=== PATIENT | male | born 1980 | race Caucasian/White ===

== ENCOUNTER 2016-11-06 16:30 | Emergency (ER) | payer SELFPAY ==
[2016-11-06 16:54] VITALS: BP 145/97; BMI 24.2
--- NOTE | 2016-11-06 17:24 | DR.GENAD ---
HPI - PCP Primary Care Physician: unkown - Complaint/Symptoms Chief Complaint Doctors Comments: Patient brought to the ED by [id number] because he posted a statement on "face book" about him not being able to by his son a gift on the birthday because he was unemployed see statement. He states that he is non suicidal and non homocidal. He was just upset because he felt less than a man because he could not provide for his son. He stated that" who would not feel that way" when you do not have any money and unemployed. Mental Health contacted but could not come to evaluate unless medically cleared. Patient would not given any blood samples and stated again that he did not want to heart anyone, and that he was not suicidal or homocidal. Patient would not give blood specimen and was not detained. Chief Complaint:: Pt refused to speak with us at this time. Pt brought in by law enforcement after posting on facebook "Any friends with me on [employer] chat tune in for the ending suicide of ya boi within the hour it will be posted." " well lets see where to begin its my son birthday and me his sorry ass excuse of a jobless dad has made it the worst bday a kid can have so fuck it im not suppose to be a dad or even alive so holla i hell when yall get there too" Self Treatment fo Chief Complaint: pt will not speak to me about a plan or anything else at this time. pt said he didnt want to harm himself at this time - Source History Provided: Patient, Law Enforcement - Mode of Arrival Mode of Arrival: Ambulatory - Timing Onset of Chief Complaint: 11/06/16 PMH - PMH Past Medical History: No Past Medical History: Anxiety, Depression Past Surgical History: No - Family History History of Family Medical Conditions: No - Social History Does patient currently use any type of tobacco product: Yes Have you used tobacco products in the last 12 months: Yes Type of Tobacco Use: Cigarettes How many years tobacco product used: 10 Does any household member use tobacco: No Alcohol Use: Occasionally Do you use any recreational Drugs:: Yes (pain pills) Lives With: Family Lives Where: Home - infectious screening In the last 2 months have you had wt loss of >10#?: NO Have you had fever, night sweats or hemotysis?: No Have you traveled outside the country in the last 6 months?: No Isolation: Standard ROS - Review of Systems Constitutional: No Symptoms Reported Eyes: No Symptoms Reported ENTM: No Symptoms Reported Respiratoy: No Symptoms Reported Cardiovascular: No Symptoms Reported Gastrointestinal/Abdominal: No Symptoms Reported Genitourinary: No Symptoms Reported Neurological: No Symptoms Reported Musculoskeletal: No Symptoms Reported Integumentary: No Symptoms Reported Hematologic/Lymphatic: No Symptoms Reported Endocrine: No Symptoms Reported Psychiatric: No Symptoms Reported All Other Systems: Reviewed and Negative PE - Vital Signs Vitals: Temperature 97.8 F Pulse Rate [Right Brachial] 85 Pulse Rate 155 Respiratory Rate 18 Blood Pressure 145/97 O2 Sat by Pulse Oximetry 100 - General Limitations: No Limitations General Appearance: Alert, In No Apparent Distress - Head Head Exam: Normal Inspection - Eyes Eye exam: Normal Appearance - ENT ENT Exam: Normal Exam External Ear Exam: Normal External Inspection Nose Exam: Normal Nose Exam Mouth Exam: Normal Inspection Throat Exam: Normal Inspection - Neck Neck Exam: Normal Inspection - Chest Chest Inspection: Normal Inspection - Respiratory Respiratory Exam: Normal Lung Sounds Bilat Respiratory Exam: Bilateral Clear to Auscultation - Cardiovascular Cardiovascular Exam: Regular Rate, Normal Rhythm - Abdominal Exam Abdominal Exam: Normal Inspection Abdominal Tenderness: negative: RUQ, RLQ, LUQ, LLQ, Epigastrium, Suprapubic, Diffuse, Mild, Moderate, Severe, Other - Extremities Extremities Exam: Normal Inspection - Neurologic Neurological Exam: Alert, Oriented X3, CN II-XII Intact - Psychiatric Psychiatric Exam: Normal Affect, Agitated. negative: Homicidal Ideation, Suicidal Ideation - Diagnosis Discharge Problem: Non Homocidal, Non-suicidal depressed mood - Discharge Plan Disposition: 07 AGAINST MEDICAL ADVICE Condition: Stable - Follow ups/Referrals Follow ups/Referrals: NFD,None [Primary Care Provider] - 3 days - Instructions
== END 2016-11-06 21:28 | disposition left against medical advice (07) ==
LOC: ER 16:30
DX: R45.1 Restlessness and agitation (principal)
CPT/HCPCS: 93005; 93010; 99282

== ENCOUNTER 2016-12-05 15:26 | Emergency (ER) | payer SELFPAY ==
[2016-12-05 15:38] VITALS: BMI 21.5
--- NOTE | 2016-12-05 16:03 | CT ---
HISTORY: Facial droop and right-sided numbness. Study: CT brain without contrast Comparison: None. Technique: Multiple axial images of the brain were obtained from the skull base to the vertex without administr ation of IV contrast. Findings: No acute intraparenchymal hemorrhage or mass can be identified. No extra-axial fluid collections ar e seen. No alteration in the attenuation of the brain parenchyma can be identified to suggest acute or subacute ischemic change. However, if the patients symptoms are clinically \T\ neurologically co ncerning for an acute ischemic event, then MR imaging of the brain with DWI sequencing would likely be beneficial to exclude an acute CVA. The ventricular system is symmetric and nondilated. The extr acranial structures are grossly unremarkable. IMPRESSION: 1. No acute intracranial process can be identified. Reported By:
--- NOTE | 2016-12-05 16:33 | DR.WEAKNES ---
HPI - Time Seen Time seen: 15:45 - Primary Care Physician Primary Care Physician: EULA - Complaints Chief Complaint:: THINK HE IS HAVING A STROKE. PT WAS DRIVING AND BECAME EXTREMELY UPSET. QUESTIONABLEY FELL ASLEEP AND HAD JERKING AND TREMORS WHILE RIDING. HAS DRAGGING OF RIGHT LEG AND DIFF AMBULATING. ONSET JUST BEFORE 1400 AND COMPLAINS OF HEADACHE. PT IS ABLE TO ANSWER ALL QUESTIONS AND SPEECH IS NOT SLURRED. - Source History Provided: Patient, Family Member - Mode of Arrival Mode of Arrival: Wheelchair - Timing Onset of Chief Complaint: 12/05/16 Symptom Onset: Known Onset of Symptoms Start Date: 12/05/16 Onset of Symptoms Start Time: 14:00 - Duration Duration: Unknown Duration: Minutes - Context Onset: Spontaneous Symptoms: Paralysis, Weakness, Difficulty talking History of: Head Trauma Stroke Symptoms: Weakness of limb PMH - PMH Past Medical History: Yes Past Medical History: Dyslipidemia Past Medical History Comment: DRUG HX Past Surgical History: Yes Surgical History: Appendectomy - Family History History of Family Medical Conditions: Yes Family Medical History: Diabetes Mellitus, Cancer, [place], Coronary Artery Disease, Heart Failure, Hypertension Family Medical History Comment: STROKE - Social History Does patient currently use any type of tobacco product: Yes Have you used tobacco products in the last 12 months: Yes Type of Tobacco Use: Cigarettes Alcohol Use: Occasionally Do you use any recreational Drugs:: Yes (THC) Lives With: Family Lives Where: Home - infectious screening In the last 2 months have you had wt loss of >10#?: NO Have you had fever, night sweats or hemotysis?: No Have you traveled outside the country in the last 6 months?: No Isolation: Standard ROS - Review of Systems Constitutional: No Symptoms Reported Eyes: No Symptoms Reported ENTM: No Symptoms Reported Respiratoy: No Symptoms Reported Cardiovascular: No Symptoms Reported Gastrointestinal/Abdominal: No Symptoms Reported Genitourinary: No Symptoms Reported Neurological: No Symptoms Reported, Problems Walking. negative: Paresthesia, Pre-existing Deficit Musculoskeletal: No Symptoms Reported Integumentary: No Symptoms Reported Hematologic/Lymphatic: No Symptoms Reported Endocrine: No Symptoms Reported Psychiatric: No Symptoms Reported All Other Systems: Reviewed and Negative PE - Vital Signs Vitals: Blood Pressure 142/84 - General Limitations: No Limitations General Appearance: Alert, In No Apparent Distress - Head Head Exam: Normal Inspection, Atraumatic Head Exam Physical: Laceration - Eyes Eye exam: Normal Appearance, PERRL, EOMI Eyelids: Normal Inspection: Bilateral Pupils: Regular, Round: Bilateral Sclera/Conjunctival: Normal Inspection: Bilateral Anterior Chamber: Normal Inspection: Bilateral - ENT ENT Exam: Normal Exam Mouth Exam: Normal Inspection Throat Exam: Normal Inspection - Neck Neck Exam: Normal Inspection - Chest Chest Inspection: Normal Inspection - Respiratory Respiratory Exam: Normal Lung Sounds Bilat Respiratory Exam: Bilateral Clear to Auscultation - Cardiovascular Cardiovascular Exam: Regular Rate, Normal Rhythm - Abdominal Exam Abdominal Exam: Normal Inspection Abdominal Tenderness: negative: RUQ, RLQ, LUQ, LLQ, Epigastrium, Suprapubic, Diffuse, Mild, Moderate, Severe, Other - Extremities Extremities Exam: Normal Inspection, Full ROM - Back Back Exam: Normal Inspection - Neurologic Neurological Exam: Alert, Oriented X3, CN II-XII Intact - Psychiatric Psychiatric Exam: Normal Affect - Skin Skin Exam: Warm, Dry, Intact Course - Treatment Treatment: I spoke with Dr Nino neurologist at [facility], case presented he stated that this is not usually to way strokes presents (jerking, shaking); might be anxiety or acute traumatic event. He does not think this patient should get treated according to stroke protocol. He advised observation , if any changes then would glade to accept. ROR - Labs Reviewed Result Diagrams: 12/05/16 15:52 12/05/16 15:52 Laboratory: WBC 7.7 X10^3/uL (3.6-10.0) 12/05/16 15:52 RBC 4.48 X10^6/uL (4.7-6.0) L 12/05/16 15:52 Hgb 14.6 g/dL (13.5-18.0) 12/05/16 15:52 Hct 41.9 % (42.0-54.0) L 12/05/16 15:52 MCV 93.4 fL (80.0-100.0) 12/05/16 15:52 MCH 32.6 pg (27.0-34.0) 12/05/16 15:52 MCHC 34.9 g/dL (33.0-35.0) 12/05/16 15:52 RDW 13.1 % (11.6-16.5) 12/05/16 15:52 Plt Count 170 X10^3/uL (150.0-450.0) 12/05/16 15:52 MPV 9.7 fL (7.4-11.0) 12/05/16 15:52 Neut % 67.8 % (42.0-75.0) 12/05/16 15:52 Lymph % 23.1 % (21.0-51.0) 12/05/16 15:52 Lajas % 6.7 % (0.0-13.0) 12/05/16 15:52 Eos % 1.9 % (0.9-2.9) 12/05/16 15:52 Baso % 0.5 % (0.2-1.0) 12/05/16 15:52 Neut # 5.2 x10^3/uL (2.2-4.8) H 12/05/16 15:52 Lymph # 1.8 X10^3/uL (1.3-2.9) 12/05/16 15:52 Lajas # 0.5 x10^3/uL (0.3-0.8) 12/05/16 15:52 Eos # 0.1 x10^3/uL (0.0-0.2) 12/05/16 15:52 Baso # 0.0 X10^3/uL (0.0-0.1) 12/05/16 15:52 Absolute Nucleated RBC 0.2 /100WBC 12/05/16 15:52 INR Target Range - 12/05/16 15:52 INR 1.29 (0.8-1.3) 12/05/16 15:52 PTT 31.1 SECONDS (22.9-36.5) 12/05/16 15:52 PTT Comment - 12/05/16 15:52 - Diagnosis Discharge Problem: Conversion disorder, acute episode, with speech symptom, with psychological stressor - Discharge Plan Condition: Stable - Follow ups/Referrals Follow ups/Referrals: Devora FORDE [Primary Care Provider] - 3 days - Instructions
[2016-12-05 16:38] LABS: BASOPHILS % (AUTO) 0.5 % (0.2-1.0); EOSINOPHILS # (AUTO) 0.1 x10^3/uL (0.0-0.2); EOSINOPHILS % (AUTO) 1.9 % (0.9-2.9); HEMATOCRIT 41.9 % (42.0-54.0); HEMOGLOBIN 14.6 g/dL (13.5-18.0); LYMPHOCYTES # (AUTO) 1.8 X10^3/uL (1.3-2.9); LYMPHOCYTES % (AUTO) 23.1 % (21.0-51.0); MEAN CORPUSCULAR HEMOGLOBIN 32.6 pg (27.0-34.0); MEAN CORPUSCULAR HGB CONC 34.9 g/dL (33.0-35.0); MEAN CORPUSCULAR VOLUME 93.4 fL (80.0-100.0); MEAN PLATELET VOLUME 9.7 fL (7.4-11.0); MONOCYTES # (AUTO) 0.5 x10^3/uL (0.3-0.8); MONOCYTES % (AUTO) 6.7 % (0.0-13.0); NEUTROPHILS # (AUTO) 5.2 x10^3/uL (2.2-4.8); NEUTROPHILS % (AUTO) 67.8 % (42.0-75.0); PLATELET COUNT 170 X10^3/uL (150.0-450.0); RED BLOOD COUNT 4.48 X10^6/uL (4.7-6.0); RED CELL DISTRIBUTION WIDTH 13.1 % (11.6-16.5); WHITE BLOOD COUNT 7.7 X10^3/uL (3.6-10.0)
[2016-12-05 16:57] LABS: BLOOD UREA NITROGEN 9 mg/dL (7-18); CALCIUM 8.6 mg/dL (8.5-10.1); CARBON DIOXIDE 29.8 mmol/L (21-32); CHLORIDE 106 mmol/L (98-107); CREATININE 0.92 mg/dL (0.70-1.30); GLUCOSE 94 mg/dL (65-99); SODIUM 143 mmol/L (136-145); TROPONIN I < 0.02 ng/mL (0-1.5); eGFR BLACK RACES > 60 (>60); eGFR NON BLACK RACES > 60 (>60)
[2016-12-05 17:02] LABS: BILIRUBIN,URINE NEGATIVE (NEGATIVE); BLOOD/HEMOGLOBIN,URINE NEGATIVE (NEGATIVE); GLUCOSE, URINE NEGATIVE (NEGATIVE); KETONES,URINE NEGATIVE (NEGATIVE); LEUKOCYTE ESTERASE ,URINE NEGATIVE (NEGATIVE); NITRITES,URINE NEGATIVE (NEGATIVE); PROTEIN,URINE NEGATIVE (NEGATIVE); UROBILINOGEN,URINE NORMAL (NORMAL)
[2016-12-05 17:11] LABS: ALANINE AMINOTRANSFERASE 37 Units/L (12-78); ALBUMIN 3.8 g/dL (3.4-5.0); ALKALINE PHOSPHATASE 40 Units/L (46-116); ASPARTATE AMINO TRANSFERASE 28 Units/L (15-37); CKMB % 0.6 % (<4); CREATINE KINASE 158 Units/L (39-308); CREATINE KINASE MB < 1.0 ng/mL (0-4.0); MAGNESIUM 1.9 mg/dL (1.7-2.9); PHOSPHORUS 3.3 mg/dL (2.6-4.7); TOTAL PROTEIN 7.7 g/dL (6.4-8.2)
[2016-12-05 17:25] VITALS: BP 135/81
[2016-12-05 17:29] LABS: APPEARANCE,URINE CLEAR (CLEAR); COLOR,URINE YELLOW (YELLOW)
== END 2016-12-05 17:35 | disposition left against medical advice (07) ==
LOC: ER 15:40
DX: F44.4 Conversion disorder with motor symptom or deficit (principal); R51 Headache
CPT/HCPCS: 36415; 70450; 80053; 80307; 81003; 82550; 82553; 83735; 84100; 84484; 85025; 85610; 85730; 96365; 99283; A4222; G0434

== ENCOUNTER 2017-11-15 00:40 | Emergency (ER) | payer SELFPAY ==
--- NOTE | 2017-11-15 00:45 | DR.LACERAT ---
HPI - Time Seen Time seen: 00:50 - Primary Care Physician Primary Care Physician: FRANKIE - HPI Comment HPI Comment: STILL BLEEDING. TD NOT UTD. - Complaints Chief Complaint Doctors Comments: LACERATION LT WRIST SUSTAIN FEW HOURS AGO. 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 Chief Complaint:: LEFT WRIST LAC ON CLEAN TIN TODAY WHILE [employer] HOUSE. O/S [id number] - Reviewed Nurses Notes Reviewed: Yes - Source History Provided: Patient, Family Member - Mode of Arrival Mode of Arrival: Ambulatory - Location Left Wrist Wound's Depth, Shape: Linear Laceration Explored: Clean - Timing Onset of Chief Complaint: 11/14/17 - Context Mechanism: Metal (CUT LT WRIST ON A TIN.) Tetanus Vaccination: No - Severity Pain Severity: Moderate Bleeding:: Uncontrolled - Associated Signs and Symptoms Associated Signs and Symptoms: None PMH - PMH Past Medical History: No Past Medical History: Dyslipidemia Past Surgical History: Yes Surgical History: Appendectomy - Family History History of Family Medical Conditions: Yes Family Medical History: Diabetes Mellitus, Cancer, [place], Coronary Artery Disease, Heart Failure, Hypertension - Social History Type of Tobacco Use: Cigarettes Does any household member use tobacco: No Alcohol Use: None Do you use any recreational Drugs:: No Lives With: Family Lives Where: Home - infectious screening Have you traveled outside the country in the last 6 months?: No Isolation: Standard ROS - Review of Systems Constitutional: No Symptoms Reported Eyes: No Symptoms Reported ENTM: No Symptoms Reported Respiratoy: No Symptoms Reported Cardiovascular: No Symptoms Reported Gastrointestinal/Abdominal: No Symptoms Reported Genitourinary: No Symptoms Reported Neurological: No Symptoms Reported Musculoskeletal: Left, Wrist Integumentary: No Symptoms Reported Hematologic/Lymphatic: No Symptoms Reported Endocrine: No Symptoms Reported All Other Systems: Reviewed and Negative PE - Vital Signs Vitals: Pulse Rate 99 Respiratory Rate 18 Blood Pressure [Left Arm] 135/81 Blood Pressure 120/79 O2 Sat by Pulse Oximetry 98 - General Limitations: No Limitations General Appearance: Alert - Head Head Exam: Normal Inspection - Eyes Eye exam: Normal Appearance - ENT ENT Exam: Normal External Ear Exam - Neck Neck Exam: Trachea Midline - Chest Chest Inspection: Symmetric Chest Wall Rise - Respiratory Respiratory Exam: Normal Lung Sounds Bilat Respiratory Exam: Bilateral Clear to Auscultation - Cardiovascular Cardiovascular Exam: Regular Rate, Normal Rhythm, Normal Heart Sounds - Abdominal Exam Abdominal Exam: Normal Inspection - Extremities Extremities Exam: Tenderness (LT WRIST 3CM LAC INNER ASPECT.) - Back Back Exam: Normal Inspection - Neurologic Neurological Exam: Alert, Oriented X3 - Skin Skin Exam: Erythema Type of Lesion: Laceration (LT WRIST.) MDM - Additional Information Obtained Additional Information Obtained From: Family - Differential Diagnosis Differential Diagnosis: Laceration Differential Diagnosis Comment: LAC LT INNER WRIST. Course - Treatment Treatment: SEE ORDERS - Education/Counseling Education/Counseling: Patient, Family, Education Educated On: Diagnosis, Needs for Follow Up Procedures - Laceration/Wound Repair Left Wrist Wound Length (cm): 3 Wound's Depth, Shape: Linear Wound Explored: clean Betadine Prep?: Yes Anesthesia: 1% Lidocaine Wound Debrided: minimal Wound Repaired With: sutures Suture Size/Type: 4:0, Ethilion Number of Sutures: 5 Layer Closure?: No Sterile Dressing Applied?: Yes Splint Applied?: No Sling Applied?: No - Diagnosis Discharge Problem: Laceration - Discharge Plan Condition: Stable Prescriptions: Doxycycline Hyclate [Vibramycin] 100 mg PO DAILY #14 cap Ibuprofen [MOTRIN TAB 800 MG *] 800 mg PO Q8H PRN #30 tab PRN Reason: Pain/Inflammation - Follow ups/Referrals Follow ups/Referrals: NFD,None [Primary Care Provider] - 3 days - Instructions Instructions: Laceration Care, Adult, [id number] Additional Instructions: KEEP AREA CLEAN AND DRY. HAVE SUTURES REMOVED IN 7-10 DAYS. RETURN TO ED IF WORSE.
[2017-11-15] MEDS ORDERED: NEOSPORIN OINT TOP ONE (00:46)
[2017-11-15] MEDS ORDERED: ADACEL TDaP IM ONE ×2 (00:46→00:47)
[2017-11-15] MEDS ORDERED: NEOSPORIN OINT ONE (00:47)
[2017-11-15 00:51] VITALS: BP 120/79; BMI 24.3
[2017-11-15] MEDS ORDERED: VIBRAMYCIN PO ONE ×2 (01:16)
[2017-11-15] MEDS ORDERED: MOTRIN TAB 800 MG PO ONE ×2 (01:17)
== END 2017-11-15 01:20 | disposition home or self-care (01) ==
LOC: ER 00:40
PROC: 0XQHXZZ Repair Left Wrist Region, External Approach (ICD-10-PCS; principal; 2017-11-15)
DX: S61.512A Laceration without foreign body of left wrist, initial encounter (principal); W45.8XXA Other foreign body or object entering through skin, initial encounter; Y92.89 Other specified places as the place of occurrence of the external cause
CPT/HCPCS: 90471; 99282